=== PATIENT | female | born 1985 | race Caucasian/White ===

== ENCOUNTER 2018-01-12 09:41 | Inpatient (IN) | payer OTHER ==
[~2018-01-12] VITALS: Ht 167.6 cm; Wt 87.2 kg
[2018-01-12] MEDS ORDERED: OXYTOCIN 30U/ 0.9% NaCL 500ML 500 ML IV SCH (09:46)
[2018-01-12] MEDS ORDERED: LACTATED RINGERS 1,000 ML IV SCH ×2 (09:46→10:00)
[2018-01-12 09:56] VITALS: BP 127/85
[2018-01-12] MEDS ORDERED: SODIUM CITRATE/CITRIC ACID 30 ML UDC ONE (09:57)
[2018-01-12] MEDS ORDERED: NEWBORN KIT ONE (09:57)
[2018-01-12] MEDS ORDERED: METOCLOPRAMIDE 5 MG/ML, 2ML ONE (09:58)
[2018-01-12] MEDS ORDERED: OXYTOCIN 30U/ 0.9% NaCL 500ML 500 ML ONE ×3 (09:58→15:16)
[2018-01-12] MEDS ORDERED: SODIUM CITRATE/CITRIC ACID 30 ML UDC PO ONE (10:00)
[2018-01-12] MEDS ORDERED: METOCLOPRAMIDE 5 MG/ML, 2ML IV ONE (10:00)
[2018-01-12] MEDS ORDERED: LACTATED RINGERS 1,000 ML IVBOLUS ONE (10:00)
[2018-01-12] MEDS ORDERED: LEVO150T PO (10:04)
[2018-01-12] MEDS ORDERED: PREN-3 PO (10:05)
[2018-01-12] MEDS ORDERED: MEPERIDINE/PF 25MG/0.5ML IVPush PRN (10:30)
[2018-01-12] MEDS ORDERED: OXYcodone 5 MG/5 ML ORAL.SOL UDC PO PRN (10:30)
[2018-01-12] MEDS ORDERED: EPHEDRINE 50 MG/ML, 1ML IVPush PRN (10:30)
[2018-01-12] MEDS ORDERED: FENTANYL PF 100 MCG/2ML IV PRN (10:30)
[2018-01-12] MEDS ORDERED: ONDANSETRON 2MG/ML, 2ML IVPush PRN (10:30)
[2018-01-12] MEDS ORDERED: HYDROcodone/APAP 7.5-325MG/15ML UDC PO PRN (10:30)
[2018-01-12] MEDS ORDERED: HYDROmorphone 1 MG/ML, 1ML IV PRN (10:30)
[2018-01-12] MEDS ORDERED: LABETALOL 5MG/ML, 20ML IV PRN (10:30)
[2018-01-12] MEDS ORDERED: PROMETHAZINE 25 MG/ML, 1ML IV PRN (10:30)
[2018-01-12] MEDS ORDERED: hydrALAzine 20 MG/ML, 1ML IV PRN (10:30)
[2018-01-12] MEDS ORDERED: MIDAZOLAM 1 MG/ML, 2ML IV PRN (10:30)
[2018-01-12 10:44] LABS: BASOPHILS # (AUTO) 0.03 x10^3/uL (0-0.1); BASOPHILS % (AUTO) 0 % (0-1); EOSINOPHILS # (AUTO) 0.03 x10^3/uL (0-0.4); EOSINOPHILS % (AUTO) 0 % (1-7); LYMPHOCYTES # (AUTO) 1.67 x10^3/uL (1-3.4); LYMPHOCYTES % (AUTO) 15 % (22-44); MD NO; MEAN CORPUSCULAR HEMOGLOBIN 29.1 pg (27.0-34.8); MEAN CORPUSCULAR HGB CONC 33.3 g/dL (32.4-35.8); MEAN CORPUSCULAR VOLUME 87.1 fL (80-100); MEAN PLATELET VOLUME 11.1 fL (7.4-10.4); MONOCYTES # (AUTO) 0.59 x10^3/uL (0.2-0.8); MONOCYTES % (AUTO) 6 % (2-9); NEUTROPHILS # (AUTO) 8.57 x10^3/uL (1.8-6.8); NEUTROPHILS % (AUTO) 79 % (42-75); PLATELET COUNT 216 x10^3/uL (130-400); RED BLOOD COUNT 4.19 x10^6/uL (3.82-5.3); RED CELL DISTRIBUTION WIDTH 14.1 % (9.6-15.2)
[2018-01-12] MEDS ORDERED: PHENYLEPHRINE 10 MG/ML ONE (12:03)
[2018-01-12] MEDS ORDERED: KETOROLAC 30 MG/1 ML ONE (12:03)
[2018-01-12] MEDS ORDERED: CEFAZOLIN 1,000 MG ONE (12:03)
[2018-01-12] MEDS ORDERED: EPHEDRINE 50 MG/ML, 1ML ONE (12:03)
[2018-01-12] MEDS ORDERED: DEXAMETHASONE 4 MG/ML, 1ML ONE (12:03)
[2018-01-12] MEDS ORDERED: OXYTOCIN 10 UNITS/ML, 1ML ONE (12:03)
[2018-01-12] MEDS ORDERED: ONDANSETRON 2MG/ML, 2ML ONE (12:03)
[2018-01-12] MEDS ORDERED: FENTANYL PF 100 MCG/2ML ONE (12:04)
[2018-01-12] MEDS: OXYTOCIN 30U/ 0.9% NaCL 500ML 500 ML IV SCH ×2 (13:11→15:25)
[2018-01-12] MEDS ORDERED: ACETAMINOPHEN 325 MG TABLET PO PRN (13:30)
[2018-01-12] MEDS ORDERED: ONDANSETRON 2MG/ML, 2ML IV PRN (13:30)
[2018-01-12] MEDS ORDERED: MISOPROSTOL 200 MCG TABLET PR PRN (13:30)
[2018-01-12] MEDS ORDERED: OXYcodone/APAP 5/325MG TABLET ONE (14:36)
[2018-01-12] MEDS ORDERED: TRANEXAMIC ACID 100 MG/ML, 10ML ONE (14:37)
[2018-01-12] MEDS ORDERED: TRANEXAMIC ACID 100 MG/ML, 10ML IV STA ×2 (14:39→14:48)
[2018-01-12] MEDS: OXYcodone/APAP 5/325MG TABLET PO PRN (14:43)
[2018-01-12] MEDS ORDERED: TRANEXAMIC ACID 1,000 MG in SODIUM CHLORIDE 0.9% 100 ML IV ONE (15:00)
[2018-01-12 15:16] LABS: MEAN CORPUSCULAR HEMOGLOBIN 29.8 pg (27.0-34.8); MEAN CORPUSCULAR VOLUME 87.7 fL (80-100); MEAN PLATELET VOLUME 11.4 fL (7.4-10.4); PLATELET COUNT 200 x10^3/uL (130-400); RED BLOOD COUNT 3.45 x10^6/uL (3.82-5.3); RED CELL DISTRIBUTION WIDTH 14.1 % (9.6-15.2)
[2018-01-12] MEDS ORDERED: HYDROmorphone 2 MG/ML, 1ML ONE (15:22)
[2018-01-12 15:38] LABS: BASOPHILS # (AUTO) 0.01 x10^3/uL (0-0.1); BASOPHILS % (AUTO) 0 % (0-1); EOSINOPHILS # (AUTO) 0.01 x10^3/uL (0-0.4); EOSINOPHILS % (AUTO) 0 % (1-7); LYMPHOCYTES # (AUTO) 0.97 x10^3/uL (1-3.4); LYMPHOCYTES % (AUTO) 6 % (22-44); MD SCAN; MONOCYTES # (AUTO) 0.28 x10^3/uL (0.2-0.8); MONOCYTES % (AUTO) 2 % (2-9); NEUTROPHILS % (AUTO) 92 % (42-75)
[2018-01-12 15:47] VITALS: BP 116/75
[2018-01-12] MEDS ORDERED: MISOPROSTOL 200 MCG TABLET ONE (16:44)
[2018-01-12] MEDS ORDERED: METHYLERGONOVINE 0.2 MG/ML IM ONE (16:44)
[2018-01-12] MEDS: HYDROmorphone 2 MG/ML, 1ML IV PRN ×2 (16:58→17:11)
[2018-01-12] MEDS: OXYcodone IR 5MG TABLET PO PRN ×2 (18:55→22:51)
[2018-01-12 19:10] VITALS: BP 117/70
[2018-01-12] MEDS: KETOROLAC 30 MG/1 ML IV SCH (20:20)
[2018-01-12] MEDS ORDERED: DIPH,PERTUSS(ACELL),TET VAC/PF NC IM-VACC ONE (22:00)
[2018-01-12] MEDS ORDERED: RHOGAM FROM BLOOD BANK 1 NOTE EA IM/IV ONE (22:00)
[2018-01-12 22:18] VITALS: BP 117/70
[2018-01-13] VITALS: BP 104/65
[2018-01-13] MEDS: OXYcodone IR 5MG TABLET PO PRN ×5 (02:41→20:55)
[2018-01-13] MEDS: KETOROLAC 30 MG/1 ML IV SCH ×5 (02:41→20:00)
[2018-01-13 05:15] VITALS: BP 100/62
[2018-01-13 06:19] LABS: BASOPHILS # (AUTO) 0.04 x10^3/uL (0-0.1); BASOPHILS % (AUTO) 0 % (0-1); EOSINOPHILS # (AUTO) 0.03 x10^3/uL (0-0.4); EOSINOPHILS % (AUTO) 0 % (1-7); LYMPHOCYTES # (AUTO) 2.15 x10^3/uL (1-3.4); LYMPHOCYTES % (AUTO) 17 % (22-44); MD NO; MEAN CORPUSCULAR HEMOGLOBIN 30.1 pg (27.0-34.8); MEAN CORPUSCULAR HGB CONC 33.8 g/dL (32.4-35.8); MEAN CORPUSCULAR VOLUME 88.9 fL (80-100); MEAN PLATELET VOLUME 10.5 fL (7.4-10.4); MONOCYTES # (AUTO) 0.89 x10^3/uL (0.2-0.8); MONOCYTES % (AUTO) 7 % (2-9); NEUTROPHILS # (AUTO) 9.56 x10^3/uL (1.8-6.8); NEUTROPHILS % (AUTO) 76 % (42-75); PLATELET COUNT 180 x10^3/uL (130-400); RED BLOOD COUNT 2.82 x10^6/uL (3.82-5.3); RED CELL DISTRIBUTION WIDTH 14.9 % (9.6-15.2)
[2018-01-13 08:09] VITALS: BP 96/62
[2018-01-13] MEDS: DOCUSATE 100 MG CAPSULE PO PRN ×2 (08:11→20:55)
[2018-01-13] MEDS: PRENATAL VIT/IRON/FA 1 EACH TABLET PO SCH (08:12)
[2018-01-13] MEDS: OXYTOCIN 30U/ 0.9% NaCL 500ML 500 ML IV SCH ×2 (09:04→19:04)
[2018-01-13] MEDS: IBUPROFEN 600 MG TABLET PO PRN ×3 (11:15→23:07)
[2018-01-13 22:00] VITALS: BP 103/67
[2018-01-14] MEDS: OXYcodone IR 5MG TABLET PO PRN ×6 (01:42→23:13)
[2018-01-14] MEDS: KETOROLAC 30 MG/1 ML IV SCH (02:00)
[2018-01-14] MEDS: IBUPROFEN 600 MG TABLET PO PRN ×3 (04:57→18:39)
[2018-01-14 07:15] VITALS: BP 108/72
[2018-01-14] MEDS: DOCUSATE 100 MG CAPSULE PO PRN (09:38)
[2018-01-14] MEDS: PRENATAL VIT/IRON/FA 1 EACH TABLET PO SCH (09:38)
[2018-01-14 21:00] VITALS: BP 114/72
[2018-01-15] MEDS: IBUPROFEN 600 MG TABLET PO PRN ×2 (00:34→06:58)
[2018-01-15] MEDS: OXYcodone/APAP 5/325MG TABLET PO PRN ×3 (03:21→12:02)
[2018-01-15] MEDS: DOCUSATE 100 MG CAPSULE PO PRN (07:37)
[2018-01-15] MEDS: PRENATAL VIT/IRON/FA 1 EACH TABLET PO SCH (07:37)
[2018-01-15 08:00] VITALS: BP 109/71
[2018-01-15] MEDS ORDERED: OXYC-302 PO (10:47)
[2018-01-15] MEDS ORDERED: IBUP-1222 PO (10:48)
== END 2018-01-15 13:15 | disposition home or self-care (01) | DRG 787 ==
LOC: LDIP 09:41 → 2NW 15:42
PROVIDERS: ADMIT Obstetrics & Gynecology; ATTEND Obstetrics & Gynecology
PROC: 10D00Z1 Extraction of Products of Conception, Low, Open Approach (ICD-10-PCS; principal; 2018-01-12)
PROC: 30233S1 Transfusion of Nonautologous Globulin into Peripheral Vein, Percutaneous Approach (ICD-10-PCS; 2018-01-12)
DX: O36.63X0 Maternal care for excessive fetal growth, third trimester, not applicable or unspecified (principal); O72.1 Other immediate postpartum hemorrhage; Z3A.39 39 weeks gestation of pregnancy; E03.9 Hypothyroidism, unspecified; O99.284 Endocrine, nutritional and metabolic diseases complicating childbirth; Z37.0 Single live birth
CPT/HCPCS: 36415; J2790; 85025; 85461; 86850; 86900; 90715; G0378; J0690; J1100; J1170; J1885; J2405; J3010; J2210; J2370; J2590; J2765; J7120

== ENCOUNTER 2018-02-04 20:07 | Observation (INO) | payer OTHER ==
[~2018-02-04] VITALS: Ht 167.6 cm; Wt 77.4 kg
[~2018-02-04 20:07] MED LIST: IBUP-1222 PO; LEVO150T PO; OXYC-302 PO; PREN-3 PO
[2018-02-04 20:29] LABS: BASOPHILS # (AUTO) 0.05 x10^3/uL (0-0.1); BASOPHILS % (AUTO) 1 % (0-1); EOSINOPHILS # (AUTO) 0.05 x10^3/uL (0-0.4); EOSINOPHILS % (AUTO) 1 % (1-7); LYMPHOCYTES # (AUTO) 2.54 x10^3/uL (1-3.4); LYMPHOCYTES % (AUTO) 23 % (22-44); MD NO; MEAN CORPUSCULAR HEMOGLOBIN 27.9 pg (27.0-34.8); MEAN CORPUSCULAR VOLUME 84.4 fL (80-100); MEAN PLATELET VOLUME 9.3 fL (7.4-10.4); MONOCYTES # (AUTO) 0.55 x10^3/uL (0.2-0.8); MONOCYTES % (AUTO) 5 % (2-9); NEUTROPHILS # (AUTO) 8.04 x10^3/uL (1.8-6.8); NEUTROPHILS % (AUTO) 72 % (42-75); PLATELET COUNT 440 x10^3/uL (130-400); RED CELL DISTRIBUTION WIDTH 15.4 % (9.6-15.2)
[2018-02-04 20:38] LABS: ALBUMIN 3.2 g/dL (3.4-5.0); ANION GAP 9 mmol/L (5-15); CALCIUM 9.1 mg/dL (8.5-10.1); CHLORIDE 107 mmol/L (98-107); CREATININE 1.06 mg/dL (0.55-1.02)
[2018-02-04] MEDS ORDERED: SACC250C4 PO (20:43)
[2018-02-04] MEDS ORDERED: CIPR500T3 PO (20:43)
[2018-02-04] MEDS ORDERED: FERR325T5 PO (20:43)
[2018-02-04 22:55] LABS: MICROSCOPIC INDICATED
[2018-02-04 22:59] LABS: CULTURE INDICATED? NO
[2018-02-05] VITALS (8 sets, daily range): BP systolic 91–122; BP diastolic 64–78
[2018-02-05] MEDS ORDERED: SODIUM CHLORIDE FLUSH 10ML SYR IVF PRN (02:30)
[2018-02-05] MEDS ORDERED: OXYTOCIN 10 UNITS/ML, 1ML ONE (03:50)
[2018-02-05] MEDS ORDERED: METHYLERGONOVINE 0.2 MG/ML IM ONE (03:50)
[2018-02-05] MEDS ORDERED: MISOPROSTOL 200 MCG TABLET ONE (03:50)
[2018-02-05] MEDS ORDERED: SILVER NITRATE STICK TP ONE (03:52)
[2018-02-05] MEDS ORDERED: FENTANYL PF 100 MCG/2ML ONE (05:41)
[2018-02-05] MEDS ORDERED: PROPOFOL 10 MG/ML, 20ML ONE (05:41)
[2018-02-05] MEDS ORDERED: MIDAZOLAM 1 MG/ML, 2ML ONE (05:41)
[2018-02-05] MEDS ORDERED: LIDOCAINE-MPF 2% ,5ML ONE (05:42)
[2018-02-05] MEDS ORDERED: ACETAMINOPHEN 325 MG TABLET PO PRN (07:00)
[2018-02-05] MEDS ORDERED: FENTANYL PF 100 MCG/2ML IV PRN (07:00)
[2018-02-05] MEDS ORDERED: HYDROmorphone 1 MG/ML, 1ML IV PRN (07:00)
[2018-02-05] MEDS ORDERED: MIDAZOLAM 1 MG/ML, 2ML IV PRN (07:00)
[2018-02-05] MEDS ORDERED: MEPERIDINE/PF 25MG/0.5ML IVPush PRN (07:00)
[2018-02-05] MEDS ORDERED: OXYcodone 5 MG/5 ML ORAL.SOL UDC PO PRN (07:00)
[2018-02-05] MEDS ORDERED: ONDANSETRON 2MG/ML, 2ML IV PRN (07:00)
[2018-02-05] MEDS ORDERED: ACETAMINOPHEN 650 MG/20.3 ML UDC ONE (07:18)
[2018-02-05] MEDS ORDERED: OXYcodone 5 MG/5 ML ORAL.SOL UDC ONE (07:19)
[2018-02-05] MEDS ORDERED: CEFAZOLIN PMX 1GM/50ML 50 ML IV ONE (08:00)
[2018-02-05 10:38] LABS: BASOPHILS # (AUTO) 0.03 x10^3/uL (0-0.1); BASOPHILS % (AUTO) 0 % (0-1); EOSINOPHILS # (AUTO) 0.14 x10^3/uL (0-0.4); EOSINOPHILS % (AUTO) 1 % (1-7); LYMPHOCYTES # (AUTO) 2.22 x10^3/uL (1-3.4); LYMPHOCYTES % (AUTO) 23 % (22-44); MD NO; MEAN CORPUSCULAR HEMOGLOBIN 28.1 pg (27.0-34.8); MEAN CORPUSCULAR HGB CONC 33.2 g/dL (32.4-35.8); MEAN CORPUSCULAR VOLUME 84.8 fL (80-100); MEAN PLATELET VOLUME 9.4 fL (7.4-10.4); MONOCYTES # (AUTO) 0.64 x10^3/uL (0.2-0.8); MONOCYTES % (AUTO) 7 % (2-9); NEUTROPHILS # (AUTO) 6.62 x10^3/uL (1.8-6.8); NEUTROPHILS % (AUTO) 69 % (42-75); PLATELET COUNT 397 x10^3/uL (130-400); RED BLOOD COUNT 3.19 x10^6/uL (3.82-5.3); RED CELL DISTRIBUTION WIDTH 15.6 % (9.6-15.2)
[2018-02-05] MEDS ORDERED: ACETAMINOPHEN 325 MG TABLET PO ONE (14:00)
[2018-02-05] MEDS ORDERED: DIPHENHYDRAMINE 50 MG/ML, 1ML IVPush PRN (14:00)
[2018-02-05] MEDS ORDERED: DIPHENHYDRAMINE 50 MG/ML, 1ML ONE (14:08)
== END 2018-02-05 17:54 | disposition home or self-care (01) ==
LOC: ED 21:11 → INTOOBSV 02-05 02:26 → EDIP 02-05 02:26 → 4NOR 02-05 03:38
PROVIDERS: ADMIT Obstetrics & Gynecology; ATTEND Obstetrics & Gynecology Maternal & Fetal Medicine
DX: O72.1 Other immediate postpartum hemorrhage (principal); O99.284 Endocrine, nutritional and metabolic diseases complicating childbirth; E03.9 Hypothyroidism, unspecified; O85 Puerperal sepsis
CPT/HCPCS: 36415; 59160; 76830; 80048; 81001; 81025; 82040; 84443; 85025; 86850; 86870; 86900; 86922; 88305; 96365; 96375; 99285; G0378; J0690; J1200; J2210; J2250; J2590; J2704; J2790; J3010; J3490; P9016; 86923

== ENCOUNTER 2020-01-23 05:13 | Day surgery (SDC) | payer OTHER ==
[~2020-01-23] VITALS: Ht 167.6 cm; Wt 75.2 kg
[~2020-01-23 05:13] MED LIST changes: +CIPR500T3 PO; +FERR325T5 PO; +SACC250C4 PO
[2020-01-23 06:12] VITALS: BP 109/71
[2020-01-23 06:14] LABS: BASOPHILS % (AUTO) 1 % (0-1); EOSINOPHILS % (AUTO) 1 % (1-7); LYMPHOCYTES % (AUTO) 37 % (22-44); MEAN CORPUSCULAR HEMOGLOBIN 28.6 pg (27.0-34.8); MEAN CORPUSCULAR HGB CONC 32.8 g/dL (32.4-35.8); MEAN PLATELET VOLUME 10.1 fL (7.4-10.4); MONOCYTES % (AUTO) 7 % (2-9); NEUTROPHILS % (AUTO) 55 % (42-75); PLATELET COUNT 203 x10^3/uL (130-400); RED BLOOD COUNT 4.79 x10^6/uL (3.82-5.3); RED CELL DISTRIBUTION WIDTH 12.8 % (9.6-15.2)
[2020-01-23] MEDS ORDERED: BUPIVACAINE/PF 0.25% ONE (06:17)
[2020-01-23] MEDS ORDERED: MISOPROSTOL 200 MCG TABLET ONE ×2 (06:18→07:20)
[2020-01-23] MEDS ORDERED: SILVER NITRATE STICK TP ONE (06:18)
[2020-01-23] MEDS ORDERED: EPINEPHRINE 1 MG/ML, 1ML ONE (06:18)
[2020-01-23] MEDS ORDERED: OXYTOCIN 10 UNITS/ML, 1ML ONE (06:18)
[2020-01-23] MEDS ORDERED: METHYLERGONOVINE 0.2 MG/ML IM ONE (06:19)
[2020-01-23 06:22] LABS: MD NO
[2020-01-23] MEDS ORDERED: CHLORHEXIDINE 15 ML UDC MM ONE (06:30)
[2020-01-23] MEDS ORDERED: LACTATED RINGERS 1,000 ML IV SCH (06:30)
[2020-01-23] MEDS ORDERED: FENTANYL PF 100 MCG/2ML ONE ×2 (06:32→07:56)
[2020-01-23] MEDS ORDERED: MIDAZOLAM 1 MG/ML, 2ML ONE (06:32)
[2020-01-23] MEDS ORDERED: LEVO137T2 PO (06:37)
[2020-01-23] MEDS ORDERED: LEVO25TA2 PO (06:37)
[2020-01-23] MEDS ORDERED: DIPHENHYDRAMINE 50 MG/ML, 1ML IVPush PRN (07:00)
[2020-01-23] MEDS ORDERED: OXYcodone 5 MG/5 ML ORAL.SOL UDC PO PRN (07:00)
[2020-01-23] MEDS ORDERED: ACETAMINOPHEN 325 MG TABLET PO PRN (07:00)
[2020-01-23] MEDS ORDERED: FENTANYL PF 100 MCG/2ML IV PRN (07:00)
[2020-01-23] MEDS ORDERED: HYDROmorphone 1 MG/ML, 1ML INJ IVPush PRN (07:00)
[2020-01-23] MEDS ORDERED: DIAZEPAM 5 MG/ML, 2ML IVPush PRN (07:00)
[2020-01-23] MEDS ORDERED: ONDANSETRON 2MG/ML, 2ML IVPush PRN (07:00)
[2020-01-23] MEDS ORDERED: METOCLOPRAMIDE 5 MG/ML, 2ML IVPush PRN (07:00)
[2020-01-23] MEDS ORDERED: MEPERIDINE/PF 25MG/0.5ML IVPush PRN (07:00)
[2020-01-23] MEDS ORDERED: hydrALAzine 20 MG/ML, 1ML IV PRN (07:00)
[2020-01-23] MEDS ORDERED: LABETALOL 5MG/ML, 20ML IV PRN (07:00)
[2020-01-23] MEDS ORDERED: KETOROLAC 30 MG/1 ML IVPush PRN (07:00)
[2020-01-23] MEDS ORDERED: ONDANSETRON 2MG/ML, 2ML ONE (07:11)
[2020-01-23] MEDS ORDERED: DEXAMETHASONE 4 MG/ML, 1ML ONE (07:11)
[2020-01-23] MEDS ORDERED: MEPERIDINE/PF 25MG/ML,1ML ONE (07:51)
[2020-01-23] MEDS ORDERED: KETOROLAC 30 MG/1 ML ONE (08:18)
[2020-01-23 08:40] VITALS: BP 108/63
== END 2020-01-23 09:45 | disposition home or self-care (01) ==
LOC: OUT 05:13
PROVIDERS: ATTEND Obstetrics & Gynecology
DX: O02.1 Missed abortion (principal); Z20.828 Contact with and (suspected) exposure to other viral communicable diseases; E03.9 Hypothyroidism, unspecified; Z79.890 Hormone replacement therapy; Z79.899 Other long term (current) drug therapy
CPT/HCPCS: 36415; 59820; 85025; 86850; 86900; 87635; 88305; J0171; J1100; J1885; J2175; J2210; J2250; J2405; J2590; J2790; J3010; J7120

== ENCOUNTER 2020-11-30 05:43 | Inpatient (IN) | payer OTHER ==
[~2020-11-30] VITALS: Ht 167.6 cm; Wt 86.1 kg
[~2020-11-30 05:43] MED LIST changes: -CIPR500T3 PO; +CIPR500T4 PO; +LEVO137T2 PO; +LEVO25TA2 PO; -OXYC-302 PO; +OXYC1TAB12 PO
[2020-11-30] MEDS ORDERED: ONDANSETRON 2MG/ML, 2ML IVPush ONE (06:00)
[2020-11-30] MEDS ORDERED: METOCLOPRAMIDE 5 MG/ML, 2ML IV ONE (06:00)
[2020-11-30] MEDS ORDERED: SODIUM CITRATE/CITRIC ACID 30 ML UDC PO ONE (06:00)
[2020-11-30] MEDS ORDERED: AZITHROMYCIN 500 MG in SODIUM CHLORIDE 0.9% 250 ML IV ONE (06:00)
[2020-11-30] MEDS ORDERED: LACTATED RINGERS 1,000 ML IVBOLUS ONE (06:00)
[2020-11-30] MEDS ORDERED: CALCIUM CARBONATE 500 MG TAB.CHEW PO PRN (06:00)
[2020-11-30] MEDS ORDERED: SODIUM CITRATE/CITRIC ACID 15 ML UDC ONE (06:17)
[2020-11-30] MEDS ORDERED: NEWBORN KIT ONE (06:17)
[2020-11-30] MEDS ORDERED: OXYTOCIN 30U/ 0.9% NaCL 500ML 500 ML ONE (06:18)
[2020-11-30 06:45] VITALS: BP 116/66
[2020-11-30 06:48] LABS: BASOPHILS % (AUTO) 0 % (0-1); EOSINOPHILS % (AUTO) 1 % (1-7); LYMPHOCYTES % (AUTO) 18 % (22-44); MEAN CORPUSCULAR HEMOGLOBIN 30.6 pg (27.0-34.8); MEAN CORPUSCULAR HGB CONC 34.2 g/dL (32.4-35.8); MEAN PLATELET VOLUME 10.6 fL (7.4-10.4); MONOCYTES % (AUTO) 7 % (2-9); NEUTROPHILS % (AUTO) 74 % (42-75); PLATELET COUNT 171 x10^3/uL (130-400); RED BLOOD COUNT 3.74 x10^6/uL (3.82-5.3); RED CELL DISTRIBUTION WIDTH 14.3 % (9.6-15.2)
[2020-11-30] MEDS ORDERED: hydrALAzine 20 MG/ML, 1ML IV PRN (07:00)
[2020-11-30] MEDS ORDERED: ONDANSETRON 2MG/ML, 2ML IVPush PRN (07:00)
[2020-11-30] MEDS ORDERED: MEPERIDINE/PF 25MG/0.5ML IVPush PRN (07:00)
[2020-11-30] MEDS ORDERED: HYDROmorphone 2 MG/ML, 1ML IVPush PRN (07:00)
[2020-11-30] MEDS ORDERED: FENTANYL PF 100 MCG/2ML IV PRN (07:00)
[2020-11-30] MEDS ORDERED: OXYcodone 5 MG/5 ML ORAL.SOL UDC PO PRN (07:00)
[2020-11-30] MEDS ORDERED: EPHEDRINE 50 MG/ML, 1ML IVPush PRN (07:00)
[2020-11-30] MEDS ORDERED: MIDAZOLAM 1 MG/ML, 2ML IV PRN (07:00)
[2020-11-30] MEDS ORDERED: PROMETHAZINE 25 MG/ML, 1ML IV PRN (07:00)
[2020-11-30] MEDS ORDERED: LABETALOL 5MG/ML, 20ML IV PRN (07:00)
[2020-11-30] MEDS ORDERED: HYDROcodone/APAP 7.5-325MG/15ML UDC PO PRN (07:00)
[2020-11-30] MEDS ORDERED: CEFAZOLIN 1,000 MG ONE (07:07)
[2020-11-30] MEDS ORDERED: OXYTOCIN 10 UNITS/ML, 1ML ONE (07:07)
[2020-11-30] MEDS ORDERED: FENTANYL PF 100 MCG/2ML ONE (07:07)
[2020-11-30] MEDS ORDERED: DEXAMETHASONE 4 MG/ML, 1ML ONE (07:07)
[2020-11-30] MEDS ORDERED: EPHEDRINE 50 MG/ML, 1ML ONE (07:07)
[2020-11-30] MEDS ORDERED: KETOROLAC 30 MG/1 ML ONE (07:07)
[2020-11-30] MEDS ORDERED: ONDANSETRON 2MG/ML, 2ML ONE (07:07)
[2020-11-30] MEDS ORDERED: PHENYLEPHRINE 10 MG/ML ONE (07:07)
[2020-11-30] MEDS ORDERED: METOCLOPRAMIDE 5 MG/ML, 2ML IV PRN (08:00)
[2020-11-30] MEDS ORDERED: MORPHINE SULFATE 4 MG/ML, 1ML IVPush PRN (08:00)
[2020-11-30] MEDS ORDERED: MEPERIDINE/PF 100 MG/ML IVPush PRN (08:00)
[2020-11-30] MEDS ORDERED: morphine SULFATE 10 MG/ML, 1ML IM PRN (08:00)
[2020-11-30] MEDS ORDERED: CARBOPROST TROMETHAMINE 250 MCG/ML, 1ML IM PRN (08:00)
[2020-11-30] MEDS ORDERED: MISOPROSTOL 200 MCG TABLET PR PRN (08:00)
[2020-11-30] MEDS: LACTATED RINGERS 1,000 ML IV SCH ×4 (08:00→18:00)
[2020-11-30] MEDS ORDERED: ACETAMINOPHEN 325 MG TABLET PO PRN (08:00)
[2020-11-30] MEDS ORDERED: METHYLERGONOVINE 0.2 MG/ML IM PRN (08:00)
[2020-11-30] MEDS ORDERED: OXYcodone/APAP 5/325MG TABLET PO PRN (08:00)
[2020-11-30] MEDS: KETOROLAC 30 MG/1 ML IV SCH ×3 (08:00→20:19)
[2020-11-30] MEDS ORDERED: ONDANSETRON 2MG/ML, 2ML IV PRN (08:00)
[2020-11-30] MEDS ORDERED: HYDROmorphone 1 MG/ML, 1ML INJ ONE ×2 (08:01)
[2020-11-30] MEDS: PRENATAL VIT/IRON/FA 1 EACH TABLET PO SCH (09:00)
[2020-11-30] MEDS ORDERED: MEPERIDINE/PF 50 MG/ML ONE (09:35)
[2020-11-30] MEDS: OXYTOCIN 30U/ 0.9% NaCL 500ML 500 ML IV SCH ×2 (10:08→18:00)
[2020-11-30 10:50] VITALS: BP 112/73
[2020-11-30] MEDS ORDERED: MISOPROSTOL 200 MCG TABLET PR ONE (11:00)
[2020-11-30] MEDS: OXYcodone IR 5MG TABLET PO PRN ×2 (14:28→19:05)
[2020-11-30] MEDS: SIMETHICONE 80 MG CHEW TAB PO PRN (14:28)
[2020-11-30 14:31] VITALS: BP 100/64
[2020-11-30 16:50] LABS: BASOPHILS % (AUTO) 0 % (0-1); EOSINOPHILS % (AUTO) 0 % (1-7); LYMPHOCYTES % (AUTO) 9 % (22-44); MEAN CORPUSCULAR HEMOGLOBIN 29.9 pg (27.0-34.8); MEAN CORPUSCULAR HGB CONC 33.4 g/dL (32.4-35.8); MEAN PLATELET VOLUME 10.7 fL (7.4-10.4); MONOCYTES % (AUTO) 5 % (2-9); NEUTROPHILS % (AUTO) 86 % (42-75); PLATELET COUNT 176 x10^3/uL (130-400); RED BLOOD COUNT 3.85 x10^6/uL (3.82-5.3); RED CELL DISTRIBUTION WIDTH 13.7 % (9.6-15.2)
[2020-11-30 19:20] VITALS: BP 111/70
[2020-11-30] MEDS: DOCUSATE 100 MG CAPSULE PO PRN (20:20)
[2020-12-01 00:14] VITALS: BP 96/60
[2020-12-01] MEDS: OXYcodone IR 5MG TABLET PO PRN ×6 (00:31→22:12)
[2020-12-01] MEDS: KETOROLAC 30 MG/1 ML IV SCH ×4 (02:31→20:06)
[2020-12-01] MEDS: OXYTOCIN 30U/ 0.9% NaCL 500ML 500 ML IV SCH ×2 (04:00→16:49)
[2020-12-01] MEDS: LACTATED RINGERS 1,000 ML IV SCH ×5 (04:00→16:49)
[2020-12-01 04:07] VITALS: BP 108/70
[2020-12-01] MEDS: PRENATAL VIT/IRON/FA 1 EACH TABLET PO SCH (08:17)
[2020-12-01] MEDS: DOCUSATE 100 MG CAPSULE PO PRN ×2 (08:17→20:06)
[2020-12-01] MEDS: SIMETHICONE 80 MG CHEW TAB PO PRN (08:17)
[2020-12-01 08:26] VITALS: BP 107/74
[2020-12-01 19:45] VITALS: BP 119/76
[2020-12-02] MEDS: OXYcodone IR 5MG TABLET PO PRN ×4 (02:07→21:27)
[2020-12-02] MEDS: KETOROLAC 30 MG/1 ML IV SCH (02:07)
[2020-12-02 07:29] VITALS: BP 121/79
[2020-12-02] MEDS: IBUPROFEN 600 MG TABLET PO PRN ×3 (07:44→21:30)
[2020-12-02] MEDS: PRENATAL VIT/IRON/FA 1 EACH TABLET PO SCH (07:44)
[2020-12-02] MEDS: DOCUSATE 100 MG CAPSULE PO PRN ×2 (07:44→21:26)
[2020-12-02] MEDS: LACTATED RINGERS 1,000 ML IV SCH ×6 (08:00→22:25)
[2020-12-02] MEDS: OXYTOCIN 30U/ 0.9% NaCL 500ML 500 ML IV SCH ×3 (10:00→20:00)
[2020-12-02 16:05] LABS: MICROSCOPIC AUTO
[2020-12-02 19:42] VITALS: BP 109/74
[2020-12-02] MEDS: SIMETHICONE 80 MG CHEW TAB PO PRN (21:26)
[2020-12-03] MEDS: LACTATED RINGERS 1,000 ML IV SCH ×3 (00:32→08:00)
[2020-12-03] MEDS: OXYcodone IR 5MG TABLET PO PRN ×4 (01:34→15:21)
[2020-12-03] MEDS: IBUPROFEN 600 MG TABLET PO PRN ×3 (03:37→15:40)
[2020-12-03] MEDS: OXYTOCIN 30U/ 0.9% NaCL 500ML 500 ML IV SCH (04:39)
[2020-12-03 08:00] VITALS: BP 131/80
[2020-12-03] MEDS: DOCUSATE 100 MG CAPSULE PO PRN (09:46)
[2020-12-03] MEDS: PRENATAL VIT/IRON/FA 1 EACH TABLET PO SCH (09:47)
[2020-12-03] MEDS ORDERED: OXYC10TA6 PO (10:09)
[2020-12-03] MEDS ORDERED: DOCU-131 PO (10:10)
[2020-12-03] MEDS ORDERED: IBUP-1222 PO (10:11)
== END 2020-12-03 15:45 | disposition home or self-care (01) | DRG 785 ==
LOC: LDIP 05:43 → 2NW 10:25
PROVIDERS: ADMIT Obstetrics & Gynecology; ATTEND Obstetrics & Gynecology
PROC: 0UB70ZZ Excision of Bilateral Fallopian Tubes, Open Approach (ICD-10-PCS; principal; 2020-11-30)
PROC: 10D00Z1 Extraction of Products of Conception, Low, Open Approach (ICD-10-PCS; 2020-11-30)
DX: O32.1XX0 Maternal care for breech presentation, not applicable or unspecified (principal); O34.211 Maternal care for low transverse scar from previous cesarean delivery; O99.284 Endocrine, nutritional and metabolic diseases complicating childbirth; O26.893 Other specified pregnancy related conditions, third trimester; E03.9 Hypothyroidism, unspecified; Z30.2 Encounter for sterilization; Z20.822 Contact with and (suspected) exposure to COVID-19; Z37.0 Single live birth; Z3A.39 39 weeks gestation of pregnancy; Z67.91 Unspecified blood type, Rh negative; Z80.0 Family history of malignant neoplasm of digestive organs; Z80.3 Family history of malignant neoplasm of breast
CPT/HCPCS: 36415; 81001; 85025; 85461; 86592; 86850; 86900; 86923; 87635; 88302; G0378; J0690; J1100; J1170; J1885; J2175; J2405; J2790; J3010; J2270; J2370; J2590; J2765; J7120